=== PATIENT | female | born 1990 | race Caucasian/White ===

== ENCOUNTER 2023-09-24 06:23 | Inpatient (IN) ==
[2023-09-24] MEDS ORDERED: Lactated Ringers 1000 ml BAG 1,000 ML IV ONE ×2 (07:27→10:53)
[2023-09-24] MEDS ORDERED: Lidocaine 1% VIAL 10 MG/ML 30 ML VIAL INJ PRN (07:27)
[2023-09-24] MEDS ORDERED: Buffered Lidocaine 1% SYRIN 1 ml INTRADERM ONE (07:27)
[2023-09-24 09:19] LABS: Urine Benzodiazepine Screen None Detected (None Detect); Urine Cannabinoids Screen None Detected (None Detect); Urine Opiates Screen None Detected (None Detect)
[2023-09-24] MEDS: Lactated Ringers 1000 ml BAG 1,000 ML IV SCH ×3 (09:58→14:10)
[2023-09-24 10:02] LABS: ABS Lymphocytes 1.4 10^3/uL (1.0-4.8); ABS Monocytes 0.5 10^3/uL (0.0-0.9); ABS Neutrophils 16.8 10^3/uL (1.5-7.6); ABS Nucleated RBC 0.01 10^3/ul; Hematocrit 39.1 % (35-45); Hemoglobin 13.5 g/dL (11.5-14.3); Lymphocyte % 7.4 %; Mean Corpuscular Hemoglobin 33.1 pg (27-33); Mean Corpuscular Hgb Conc 34.5 g/dL (31-36); Platelet Count 138 10^3/uL (150-450); Red Blood Count 4.07 10^6/uL (3.63-4.92); Red Cell Distribution Width 13.6 % (12-17); White Blood Count 18.7 10^3/uL (3.8-11.8)
[2023-09-24] MEDS ORDERED: OBEPIDURAL (200 ML) 200 ML EPIDURAL ONE (10:05)
[2023-09-24] MEDS ORDERED: Lidocaine 1.5% EPI 1:200,000 30 ML SDV ONE (10:05)
[2023-09-24] MEDS ORDERED: fentaNYL 100 mcg/2 ml 50 MCG/ML VIAL ONE (10:11)
[2023-09-24] MEDS ORDERED: Sodium Citrate/Citric Acid LIQ 15 ML UDC PO PRN (10:53)
[2023-09-24] MEDS ORDERED: Phenylephrine 40 mcg/mL 10mL (400mcg) SYRINGE IV PUSH PRN ×2 (10:53)
[2023-09-24] MEDS ORDERED: Lactated Ringers 1000 ml BAG 1,000 ML IV SCH ×2 (11:00→21:00)
[2023-09-24] MEDS ORDERED: OBEPIDURAL (200 ML) 200 ML EPIDURAL SCH (11:00)
[2023-09-24 12:56] LABS: Urine Appearance Cloudy; Urine Bilirubin Negative (Negative); Urine Blood 2+ (Negative); Urine Color Yellow; Urine Glucose Negative (Negative); Urine Ketones 2+ (Negative); Urine Nitrite Negative (Negative); Urine Protein 1+(30 mg/dL) (Negative); Urine Specific Gravity 1.023 (1.002-1.030); Urine Urobilinogen Negative (Negative)
[2023-09-24 13:00] LABS: Urine Bacteria Absent (Absent); Urine Red Blood Cell 3+(>10/hpf) (Absent); Urine Squamous Epithelial Cell Present (Absent); Urine White Blood Cell Trace(0-5/hpf) (Absent)
[2023-09-24] MEDS: Witch Hazel PAD JAR TOPICAL PRN (21:45)
[2023-09-24] MEDS: Dibucaine 1% OINT 28.35 GM TUBE PR PRN (21:45)
[2023-09-25 07:07] LABS: ABS Monocytes 0.8 10^3/uL (0.0-0.9); ABS Neutrophils 14.1 10^3/uL (1.5-7.6); Eosinophil % 0.1 %; Hematocrit 29.4 % (35-45); Hemoglobin 10.1 g/dL (11.5-14.3); Lymphocyte % 11.6 %; Mean Corpuscular Hemoglobin 33.4 pg (27-33); Mean Corpuscular Hgb Conc 34.4 g/dL (31-36); Mean Corpuscular Volume 97.1 fL (80-97); Mean Platelet Volume 10.6 fL (7.5-11.2); Platelet Count 119 10^3/uL (150-450); Red Blood Count 3.03 10^6/uL (3.63-4.92); Red Cell Distribution Width 13.5 % (12-17)
[2023-09-25] MEDS: Dibucaine 1% OINT 28.35 GM TUBE PR PRN (11:15)
[2023-09-25] MEDS: Witch Hazel PAD JAR TOPICAL PRN (22:47)
[2023-09-26 09:17] VITALS: BP 100/62
[2023-09-26] MEDS: Dibucaine 1% OINT 28.35 GM TUBE PR PRN (12:17)
[2023-09-26] MEDS: Witch Hazel PAD JAR TOPICAL PRN (12:17)
== END 2023-09-26 12:25 | disposition home or self-care (01) | DRG 560 ==
LOC: MCHOBOUT 06:23 → MCHOB 06:59
PROVIDERS: ADMIT Midwife; ATTEND Registered Nurse